=== PATIENT | male | born 1940 | race Caucasian/White ===

== ENCOUNTER → 2016-08-26 15:10 | Outpatient (CLI) | payer MEDICARE ==
[2016-08-29 20:07] LABS: RMSF IGM 0.27 index (0.00-0.89)
[2016-08-30 12:16] LABS: EHRLICHIA CHAFF IGG Negative (Neg:<1:64); EHRLICHIA CHAFF IGM Negative (Neg:<1:20); HGE IGG TITER Negative (Neg:<1:64); HGE IGM TITER Negative (Neg:<1:20)
[2016-09-06 14:23] LABS: F. TULARENSIS - IGG Negative (()); F. TULARENSIS - IGM Negative (())
== END | disposition home or self-care (01) ==
LOC: D.LABREF 15:10
PROVIDERS: Student in an Organized Health Care Education/Training Program
DX: R53.1 Weakness (principal); W57.XXXA Bitten or stung by nonvenomous insect and other nonvenomous arthropods, initial encounter